=== PATIENT | female | born 1940 | race Caucasian/White ===

== ENCOUNTER 2016-07-01 12:12 | Emergency (ER) | payer MEDICARE ==
[2016-07-01 15:03] LABS: Bilirubin,Urine NEG (Negative); Blood,Urine NEG (Negative); Ketones,Urine NEG (Negative); Leukocyte Esterase,Urine LG (Negative); Nitrite,Urine POS (Negative); Protein,Urine <15 mg/dL mg/dL (Negative); Urobilinogen,Urine < 2.0 mg/dL (<2.0)
[2016-07-01 15:06] LABS: WBC,Urine > 182.0 /HPF (0.0-6.0)
[2016-07-01] MEDS ORDERED: MOTRIN PO ONE (16:31)
--- NOTE | 2016-07-01 16:37 | Emergency Department Report ---
ED Back Pain/Injury HPI - General Chief Complaint: Back Pain/Injury Stated Complaint: LEG PAIN/LOWER BACK PAIN Time Seen by Provider: 07/01/16 16:11 Source: patient, senior network engineer Mode of arrival: Ambulatory Limitations: Language Barrier - History of Present Illness Initial Comments: 76-year-old female presents to the emergency department complaining of lower back pain. Patient reports one week of aching pain that does not radiate. Pain is across the entire lower back. She denies fall or other injury. Pain is constant and is worse with movement. Patient denies associated fever, nausea , vomiting, diarrhea, or abdominal pain. She also denies chest pain or difficulty breathing. There are no other complaints. -: Gradual, week(s) (1) Similar Symptoms Previously: No Place: home Radiation: none Severity: moderate Quality: aching Consistency: constant Improves With: none Worsens With: movement Context: unknown Associated Symptoms: denies other symptoms - Related Data Home Medications Medication Instructions Recorded Confirmed Last Taken Alendronate Sodium/Vitamin D3 70 mg 1XW 07/07/13 10/29/14 07/07/13 [Fosamax Plus D 70 mg-5,600 IU] Cyclobenzaprine [Flexeril 10 MG 10 mg PRN 07/07/13 10/29/14 07/05/13 TAB] Lisinopril/Hydrochlorothiazide 20 mg ONCE 07/07/13 10/29/14 07/10/13 [Zestoretic 20-12.5 mg] Lovastatin [Altoprev] 20 mg ONCE 07/07/13 10/29/14 07/10/13 Previous Rx's Medication Instructions Recorded Last Taken Type Ranitidine HCl [Ranitidine 150mg 150 mg PO BID #60 cap 07/07/13 07/10/13 Rx Cap] Tramadol HCl/Acetaminophen 37.5 - 325 mg PO PRN PRN #30 tablet 04/22/14 Unknown Rx [Ultracet] traMADol [Ultram 50 MG tab] 50 mg PO Q6HR PRN #20 tablet 10/29/14 Unknown Rx Ibuprofen [Motrin] 800 mg PO Q8HR PRN #30 tablet 07/01/16 Unknown Rx Nitrofurantoin [place]/M-Cryst 100 mg PO Q12HR #14 capsule 07/01/16 Unknown Rx [Macrobid CAP] Allergies Allergy/AdvReac Type Severity Reaction Status Date / Time No Known Allergies Allergy Unverified 07/10/13 16:11 ED Review of Systems ROS: Stated complaint: LEG PAIN/LOWER BACK PAIN Other details as noted in HPI Comment: All other systems reviewed and negative Musculoskeletal: back pain ED Past Medical Hx - Past Medical History Previous Medical History?: Yes Hx Hypertension: Yes Hx Arthritis: Yes Additional medical history: HIGH CHOLESTEROL - Surgical History Past Surgical History?: Yes Additional Surgical History: CATARACT SURGERY - Family History Family history: no significant - Social History Smoking Status: Never Smoker Substance Use Type: None - Medications Home Medications: Home Medications Medication Instructions Recorded Confirmed Last Taken Type Alendronate Sodium/Vitamin D3 70 mg 1XW 07/07/13 10/29/14 07/07/13 History [Fosamax Plus D 70 mg-5,600 IU] Cyclobenzaprine [Flexeril 10 MG 10 mg PRN 07/07/13 10/29/14 07/05/13 History TAB] Lisinopril/Hydrochlorothiazide 20 mg ONCE 07/07/13 10/29/14 07/10/13 History [Zestoretic 20-12.5 mg] Lovastatin [Altoprev] 20 mg ONCE 07/07/13 10/29/14 07/10/13 History Ranitidine HCl [Ranitidine 150mg 150 mg PO BID #60 cap 07/07/13 10/29/14 Rx Cap] Tramadol HCl/Acetaminophen 37.5 - 325 mg PO PRN PRN #30 tablet 04/22/14 Unknown Rx [Ultracet] traMADol [Ultram 50 MG tab] 50 mg PO Q6HR PRN #20 tablet 10/29/14 Unknown Rx Ibuprofen [Motrin] 800 mg PO Q8HR PRN #30 tablet 07/01/16 Unknown Rx Nitrofurantoin [place]/M-Cryst 100 mg PO Q12HR #14 capsule 07/01/16 Unknown Rx [Macrobid CAP] ED Physical Exam - General Limitations: Language Barrier General appearance: alert, in no apparent distress - Head Head exam: Present: atraumatic, normocephalic - Eye Eye exam: Present: normal appearance, PERRL, EOMI - ENT ENT exam: Present: normal exam, normal orophraynx, mucous membranes moist - Neck Neck exam: Present: normal inspection, full ROM. Absent: tenderness - Respiratory Respiratory exam: Present: normal lung sounds bilaterally. Absent: respiratory distress - Cardiovascular Cardiovascular Exam: Present: regular rate, normal rhythm, normal heart sounds - GI/Abdominal GI/Abdominal exam: Present: soft, normal bowel sounds. Absent: distended, tenderness - Extremities Exam Extremities exam: Present: normal inspection, full ROM. Absent: tenderness - Back Exam Back exam: Present: normal inspection, full ROM, tenderness, paraspinal tenderness (bilateral lumbar paraspinous muscles). Absent: vertebral tenderness - Neurological Exam Neurological exam: Present: alert, oriented X3. Absent: motor sensory deficit - Skin Skin exam: Present: warm, dry, intact ED Course Vital Signs 07/01/16 07/01/16 13:06 16:30 Temperature 98.4 F Pulse Rate 91 H Respiratory 22 18 Rate Blood Pressure 144/89 O2 Sat by Pulse 95 Oximetry ED Medical Decision Making - EKG Data -: EKG Interpreted by Me EKG shows normal: sinus rhythm, axis, intervals, QRS complexes, ST-T waves Rate: normal - EKG Data When compared to previous EKG there are: previous EKG unavailable Interpretation: normal EKG - Medical Decision Making Lab results reviewed and discussed with the patient. Patient will be treated for urinary tract infection and discharged home. - Differential Diagnosis lumbar strain, UTI Critical care attestation.: If time is entered above; I have spent that time in minutes in the direct care of this critically ill patient, excluding procedure time. ED Disposition Clinical Impression: Acute cystitis without hematuria Disposition: DISCHARGED TO HOME OR SELFCARE Is pt being admited?: No Condition: Stable Instructions: Urinary Tract Infection in Women (ED) Prescriptions: Ibuprofen [Motrin] 800 mg PO Q8HR PRN #30 tablet PRN Reason: Pain Nitrofurantoin [place]/M-Cryst [Macrobid CAP] 100 mg PO Q12HR #14 capsule Referrals: PRIMARY CARE, [Primary Care Provider] - 3-5 Days Time of Disposition: 16:38
[2016-07-01 16:54] VITALS: BP 150/82
== END 2016-07-01 17:12 | disposition home or self-care (01) ==
LOC: ED 12:12
DX: N30.00 Acute cystitis without hematuria (principal); I10 Essential (primary) hypertension; E78.00 Pure hypercholesterolemia, unspecified; Z98.890 Other specified postprocedural states
CPT/HCPCS: 81001; 93005; 93010; 99283

== ENCOUNTER 2017-10-25 11:55 | Observation (INO) | payer MEDICARE ==
[2017-10-25 14:25] LABS: Basophils % (Auto) 0.4 % (0.0-1.8); Eosinophils # (Auto) 0.2 K/mm3 (0.0-0.4); Eosinophils % (Auto) 2.5 % (0.0-4.3); Hemoglobin 11.4 gm/dl (10.1-14.3); Lymphocytes # (Auto) 1.9 K/mm3 (1.2-5.4); Lymphocytes % (Auto) 25.4 % (13.4-35.0); Mean Corpuscular HGB Conc 33 % (30-34); Mean Corpuscular Hemoglobin 29 pg (28-32); Mean Corpuscular Volume 89 fl (79-97); Monocytes # (Auto) 0.6 K/mm3 (0.0-0.8); Monocytes % (Auto) 8.1 % (0.0-7.3); Platelet Count 299 K/mm3 (140-440); Red Blood Count 3.93 M/mm3 (3.65-5.03); Red Cell Distribution Width 13.1 % (13.2-15.2)
[2017-10-25 15:16] LABS: Alanine Aminotransferase 6 units/L (7-56); Albumin 3.4 g/dL (3.9-5); BUN/Creatinine Ratio 20; Blood Urea Nitrogen 8 mg/dL (7-17); Calcium 9.2 mg/dL (8.4-10.2); Hemolysis Index 26
--- NOTE | 2017-10-25 19:32 | Emergency Department Report ---
ED General Adult HPI - General Chief complaint: Extremity Problem,Nontraumatic Stated complaint: SWELLING OF THE LEGS Time Seen by Provider: 10/25/17 18:58 Source: patient Mode of arrival: Ambulatory Limitations: Language Barrier - History of Present Illness Initial comments: Patient presents to the ED with gradual onset of bilateral lower leg swelling. -: Gradual Location: lower extremity Severity scale (0 -10): 0 Consistency: constant Improves with: none Worsens with: none Associated Symptoms: denies other symptoms Treatments Prior to Arrival: none - Related Data Home Medications Medication Instructions Recorded Confirmed Last Taken Alendronate Sodium/Vitamin D3 70 mg 1XW 07/07/13 10/29/14 07/07/13 [Fosamax Plus D 70 mg-5,600 IU] Cyclobenzaprine [Flexeril 10 MG 10 mg PRN 07/07/13 10/29/14 07/05/13 TAB] Lovastatin [Altoprev] 20 mg ONCE 07/07/13 10/29/14 07/10/13 Previous Rx's Medication Instructions Recorded Last Taken Type Ranitidine HCl [Ranitidine 150mg 150 mg PO BID #60 cap 07/07/13 07/10/13 Rx Cap] Tramadol HCl/Acetaminophen 37.5 - 325 mg PO PRN PRN #30 tablet 04/22/14 Unknown Rx [Ultracet] traMADol [Ultram 50 MG tab] 50 mg PO Q6HR PRN #20 tablet 10/29/14 Unknown Rx Ibuprofen [Motrin 800 MG tab] 800 mg PO Q8HR PRN #30 tablet 07/01/16 Unknown Rx Nitrofurantoin [place]/M-Cryst 100 mg PO Q12HR #14 capsule 07/01/16 Unknown Rx [Macrobid CAP] Meclizine [Antivert] 25 mg PO Q8H PRN #30 tablet 07/01/17 Unknown Rx amLODIPine [Norvasc] 5 mg PO DAILY #30 tablet 07/01/17 Unknown Rx Allergies Allergy/AdvReac Type Severity Reaction Status Date / Time No Known Allergies Allergy Verified 06/29/17 15:43 ED Review of Systems ROS: Stated complaint: SWELLING OF THE LEGS Other details as noted in HPI Comment: All other systems reviewed and negative Constitutional: denies: chills, fever Eyes: denies: vision change ENT: denies: ear pain Respiratory: shortness of breath Cardiovascular: edema. denies: chest pain, palpitations Endocrine: no symptoms reported Gastrointestinal: denies: abdominal pain, nausea, vomiting, diarrhea Genitourinary: denies: urgency, frequency Musculoskeletal: denies: back pain, joint swelling Skin: denies: rash, change in color Neurological: denies: headache, weakness, numbness Psychiatric: denies: anxiety, depression Hematological/Lymphatic: denies: easy bleeding, easy bruising ED Past Medical Hx - Past Medical History Hx Hypertension: Yes Hx Arthritis: Yes Additional medical history: HIGH CHOLESTEROL - Surgical History Additional Surgical History: CATARACT SURGERY - Social History Smoking Status: Never Smoker Substance Use Type: None - Medications Home Medications: Home Medications Medication Instructions Recorded Confirmed Last Taken Type Alendronate Sodium/Vitamin D3 70 mg 1XW 07/07/13 10/29/14 07/07/13 History [Fosamax Plus D 70 mg-5,600 IU] Cyclobenzaprine [Flexeril 10 MG 10 mg PRN 07/07/13 10/29/14 07/05/13 History TAB] Lovastatin [Altoprev] 20 mg ONCE 07/07/13 10/29/14 07/10/13 History Ranitidine HCl [Ranitidine 150mg 150 mg PO BID #60 cap 07/07/13 10/29/14 Rx Cap] Tramadol HCl/Acetaminophen 37.5 - 325 mg PO PRN PRN #30 tablet 04/22/14 Unknown Rx [Ultracet] traMADol [Ultram 50 MG tab] 50 mg PO Q6HR PRN #20 tablet 10/29/14 Unknown Rx Ibuprofen [Motrin 800 MG tab] 800 mg PO Q8HR PRN #30 tablet 07/01/16 Unknown Rx Nitrofurantoin [place]/M-Cryst 100 mg PO Q12HR #14 capsule 07/01/16 Unknown Rx [Macrobid CAP] Meclizine [Antivert] 25 mg PO Q8H PRN #30 tablet 07/01/17 Unknown Rx amLODIPine [Norvasc] 5 mg PO DAILY #30 tablet 07/01/17 Unknown Rx ED Physical Exam - General Limitations: Language Barrier General appearance: alert - Head Head exam: Present: atraumatic, normocephalic, normal inspection - Eye Eye exam: Present: normal appearance, PERRL, EOMI Pupils: Present: normal accommodation - ENT ENT exam: Present: normal exam, normal orophraynx, mucous membranes moist - Neck Neck exam: Present: normal inspection, full ROM - Respiratory Respiratory exam: Present: rales. Absent: respiratory distress - Cardiovascular Cardiovascular Exam: Present: regular rate, normal rhythm, normal heart sounds - GI/Abdominal GI/Abdominal exam: Present: soft, normal bowel sounds. Absent: distended, tenderness, guarding, rebound - Extremities Exam Extremities exam: Present: normal inspection, full ROM, normal capillary refill - Back Exam Back exam: Present: normal inspection, full ROM - Neurological Exam Neurological exam: Present: alert, oriented X3, CN II-XII intact - Psychiatric Psychiatric exam: Present: normal affect, normal mood - Skin Skin exam: Present: warm, dry, intact, normal color. Absent: rash ED Course Vital Signs 10/25/17 10/25/17 10/25/17 12:12 18:12 18:15 Temperature 98.3 F Pulse Rate 85 71 72 Respiratory 16 16 Rate Blood Pressure 179/79 168/74 Blood Pressure [Left] O2 Sat by Pulse 97 96 96 Oximetry 10/25/17 10/25/17 10/25/17 18:31 18:36 18:37 Temperature 98.2 F Pulse Rate 72 75 Respiratory 17 16 16 Rate Blood Pressure 168/74 Blood Pressure 168/74 [Left] O2 Sat by Pulse 96 97 97 Oximetry 10/25/17 21:41 Temperature 98.7 F Pulse Rate 76 Respiratory 15 Rate Blood Pressure Blood Pressure 174/70 [Left] O2 Sat by Pulse 97 Oximetry - Reevaluation(s) Reevaluation #1: 10/25/17 22:58 Bilateral lower leg tomorrow. ED Medical Decision Making - Lab Data Result diagrams: 10/25/17 14:07 10/25/17 14:07 - EKG Data -: EKG Interpreted by Co EKG shows normal: sinus rhythm Rate: normal (73) - EKG Data When compared to previous EKG there are: previous EKG unavailable Interpretation: other (No STEMI) - Radiology Data Radiology results: report reviewed, image reviewed - Medical Decision Making Congestive heart failure Critical care attestation.: If time is entered above; I have spent that time in minutes in the direct care of this critically ill patient, excluding procedure time. ED Disposition Clinical Impression: Congestive heart failure (CHF) Qualifiers: Heart failure type: unspecified Heart failure chronicity: acute Qualified Code( s): I50.9 - Heart failure, unspecified Hypertension Qualifiers: Hypertension type: essential hypertension Qualified Code(s): I10 - Essential ( primary) hypertension Disposition: OP ADMIT IP TO THIS HOSP Is pt being admited?: Yes Does the pt Need Aspirin: No Condition: Stable Instructions: Hypertension (ED) Referrals: PRIMARY CARE, [Primary Care Provider] - 3-5 Days
--- NOTE | 2017-10-25 20:16 | XRay Report ---
FINAL REPORT PROCEDURE: XR CHEST 1V AP TECHNIQUE: Chest radiograph anteroposterior view. CPT 31981 HISTORY: Leg swelling, SOB COMPARISON: No prior studies are available for comparison. FINDINGS: Heart: Normal. Mediastinum/Vessels: Normal. Lungs/Pleural space: Diffuse prominence of interstitial markings is noted. Mild degree confluent densities are noted in the left upper lobe. Bilateral pleural spaces are clear.. Bony thorax: There is moderate degree dextroscoliosis of the upper thoracic spine. Life support devices: None. IMPRESSION: Diffuse prominence of interstitial markings most likely represent interstitial edema. In the superimposed infiltrates in the left upper lobe cannot be excluded..
[2017-10-25 20:38] LABS: INR 0.99 (0.87-1.13)
[2017-10-25 20:39] LABS: Partial Thromboplastin Time 33.1 Sec. (24.2-36.6)
[2017-10-25] MEDS ORDERED: LASIX IV ONE (21:58)
--- NOTE | 2017-10-26 03:53 | History and Physical Report ---
History of Present Illness Date of examination: 10/26/17 Date of admission: 10/25/17 23:39 Chief complaint: Bilateral lower extremity swelling History of present illness: Patient is a 77 year old woman with history of hypertension, hyperlipidemia, recently treated for dizziness comes to the emergency room because of bilateral lower ext swelling, she reports this has been going on for a few weeks and denies any associated shortness of breath, orthopnea, PND, chest pain, nausea or vomiting. 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 She was recently in the hospital for hypertension and dizziness at which time she was diagnosed with benign positional vertigo during that stay the patient was started on Norvasc and also meclizine. ROS Constitutional: No fever, fatigue or weight loss. Skin: No rash. Eyes: No recent vision problems or eye pain. ENT: No congestion, ear pain, or sore throat. Endocrine: No thyroid problems. Cardiovascular: No chest pain. Bilateral lower ext swelling Respiratory: No cough, shortness of breath, congestion, or wheezing. Gastrointestinal: No abdominal pain, nausea, vomiting, or diarrhea. Genitourinary: No dysuria. Musculoskeletal: No joint swelling. Neurologic: No seizures. Hematologic: No unusual bruising or bleeding. Psychiatric: No psychiatric problems, hallucinations or depression. All other systems reviewed and otherwise negative. Past History Past Medical History: hypertension, hyperlipidemia Past Surgical History: No surgical history Social history: lives with family, full code Family history: hypertension Medications and Allergies Allergies Allergy/AdvReac Type Severity Reaction Status Date / Time No Known Allergies Allergy Verified 06/29/17 15:43 Home Medications Medication Instructions Recorded Confirmed Last Taken Type Alendronate Sodium/Vitamin D3 70 mg 1XW 07/07/13 10/29/14 07/07/13 History [Fosamax Plus D 70 mg-5,600 IU] Cyclobenzaprine [Flexeril 10 MG 10 mg PRN 07/07/13 10/29/14 07/05/13 History TAB] Lovastatin [Altoprev] 20 mg ONCE 07/07/13 10/29/14 07/10/13 History Ranitidine HCl [Ranitidine 150mg 150 mg PO BID #60 cap 07/07/13 10/29/14 Rx Cap] Tramadol HCl/Acetaminophen 37.5 - 325 mg PO PRN PRN #30 tablet 04/22/14 Unknown Rx [Ultracet] traMADol [Ultram 50 MG tab] 50 mg PO Q6HR PRN #20 tablet 10/29/14 Unknown Rx Ibuprofen [Motrin 800 MG tab] 800 mg PO Q8HR PRN #30 tablet 07/01/16 Unknown Rx Nitrofurantoin [place]/M-Cryst 100 mg PO Q12HR #14 capsule 07/01/16 Unknown Rx [Macrobid CAP] Meclizine [Antivert] 25 mg PO Q8H PRN #30 tablet 07/01/17 Unknown Rx amLODIPine [Norvasc] 5 mg PO DAILY #30 tablet 07/01/17 Unknown Rx Exam - Physical Exam Narrative exam: VITAL SIGNS: Reviewed. GENERAL: The patient appeared well nourished and normally developed. Vital signs as documented. HEAD: No signs of head trauma. EYES: Pupils are equal. Extraocular motions intact. EARS: Hearing grossly intact. MOUTH: Oropharynx is normal. NECK: No adenopathy, no JVD. CHEST: Chest with clear breath sounds bilaterally. No wheezes, rales, or rhonchi. CARDIAC: Regular rate and rhythm. S1 and S2, without murmurs, gallops, or rubs. VASCULAR: Trace Edema. Peripheral pulses normal and equal in all extremities. ABDOMEN: Soft, without detectable tenderness. No sign of distention. No rebound or guarding, and no masses palpated. Bowel Sounds normal. MUSCULOSKELETAL: Good range of motion of all major joints. Extremities without clubbing, cyanosis. chronic lymphedema. Trace pitting edema. NEUROLOGIC EXAM: Alert and oriented x 3. No focal sensory or strength deficits. Speech normal. Follows commands. PSYCHIATRIC: Mood normal. SKIN: No rash or lesions. - Constitutional Vitals: Temp Pulse Resp BP Pulse Ox 98.7 F 69 14 159/69 95 10/25/17 21:41 10/26/17 02:00 10/26/17 02:00 10/26/17 02:00 10/26/17 02:00 Results - Labs CBC & Chem 7: 10/25/17 14:07 10/25/17 14:07 Labs: Laboratory Last Values WBC 7.6 K/mm3 (4.5-11.0) 10/25/17 14:07 RBC 3.93 M/mm3 (3.65-5.03) 10/25/17 14:07 Hgb 11.4 gm/dl (10.1-14.3) 10/25/17 14:07 Hct 35.0 % (30.3-42.9) 10/25/17 14:07 MCV 89 fl (79-97) 10/25/17 14:07 MCH 29 pg (28-32) 10/25/17 14:07 MCHC 33 % (30-34) 10/25/17 14:07 RDW 13.1 % (13.2-15.2) L 10/25/17 14:07 Plt Count 299 K/mm3 (140-440) 10/25/17 14:07 Lymph % (Auto) 25.4 % (13.4-35.0) 10/25/17 14:07 [place] % (Auto) 8.1 % (0.0-7.3) H 10/25/17 14:07 Eos % (Auto) 2.5 % (0.0-4.3) 10/25/17 14:07 Baso % (Auto) 0.4 % (0.0-1.8) 10/25/17 14:07 Lymph # 1.9 K/mm3 (1.2-5.4) 10/25/17 14:07 [place] # 0.6 K/mm3 (0.0-0.8) 10/25/17 14:07 Eos # 0.2 K/mm3 (0.0-0.4) 10/25/17 14:07 Baso # 0.0 K/mm3 (0.0-0.1) 10/25/17 14:07 Seg Neutrophils % 63.6 % (40.0-70.0) 10/25/17 14:07 Seg Neutrophils # 4.8 K/mm3 (1.8-7.7) 10/25/17 14:07 PT 13.6 Sec. (12.2-14.9) 10/25/17 20:07 INR 0.99 (0.87-1.13) 10/25/17 20:07 APTT 33.1 Sec. (24.2-36.6) 10/25/17 20:07 Sodium 139 mmol/L (137-145) 10/25/17 14:07 Potassium 4.0 mmol/L (3.6-5.0) 10/25/17 14:07 Chloride 100.2 mmol/L (98-107) 10/25/17 14:07 Carbon Dioxide 26 mmol/L (22-30) 10/25/17 14:07 Anion Gap 17 mmol/L 10/25/17 14:07 BUN 8 mg/dL (7-17) 10/25/17 14:07 Creatinine 0.4 mg/dL (0.7-1.2) L 10/25/17 14:07 Estimated GFR > 60 ml/min 10/25/17 14:07 BUN/Creatinine Ratio 20 % 10/25/17 14:07 Glucose 108 mg/dL (65-100) H 10/25/17 14:07 Calcium 9.2 mg/dL (8.4-10.2) 10/25/17 14:07 Total Bilirubin 0.30 mg/dL (0.1-1.2) 10/25/17 14:07 AST 13 units/L (5-40) 10/25/17 14:07 ALT 6 units/L (7-56) L 10/25/17 14:07 Alkaline Phosphatase 62 units/L (35-129) 10/25/17 14:07 NT-Pro-B Natriuret Pep 203.8 pg/mL (0-900) 10/25/17 20:07 Total Protein 8.1 g/dL (6.3-8.2) 10/25/17 14:07 Albumin 3.4 g/dL (3.9-5) L 10/25/17 14:07 Albumin/Globulin Ratio 0.7 % 10/25/17 14:07 - Imaging and Cardiology Chest x-ray: image reviewed (interestitial edema) Assessment and Plan Assessment and plan: Patient is a 77 year old woman with history of hypertension, hyperlipidemia, recently treated for dizziness comes to the emergency room because of bilateral lower ext swelling, she reports this has been going on for a few weeks and denies any associated shortness of breath, orthopnea, PND, chest pain, nausea or vomiting. 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 During her recent admission to the hospital she was started on Norvasc. Bilateral lower ext edema Interstitial Edema possible pneumonitis HTN Hyperlipidemia Morbid obesity Plan * Admit to [facility] * Bilateral lower ext edema could be secondary to norvasc * Start levaquin, statin,hctz, and prn enalapril and monitor renal function * Check Echocardiogram * Repeat cxr in am * Doubt CHF * Lower ext Doppler negative. * DVT/GI prophy * Plan of care and code status discussed with patient and family. * Discharge in am if clinically improved Advance Directives: Yes Plan of care discussed with patient/family: Yes
[2017-10-26] MEDS ORDERED: ZOFRAN IV PRN (03:55)
[2017-10-26] MEDS ORDERED: TYLENOL PO PRN (03:55)
[2017-10-26] MEDS ORDERED: SODIUM CHLORIDE FLUSH SYRINGE 10 ML IV PRN (03:55)
[2017-10-26] MEDS ORDERED: PROVENTIL IH PRN (03:55)
[2017-10-26] MEDS ORDERED: VASOTEC IV PRN (03:59)
[2017-10-26] MEDS ORDERED: VASOTEC IV SCH (06:00)
[2017-10-26 07:01] LABS: Chol/HDL Ratio 4.23 %
[2017-10-26] MEDS: DUONEB *Not for PRN Use IH SCH ×3 (08:50→20:20)
[2017-10-26] MEDS: LOPRESSOR PO SCH ×2 (10:47→23:28)
[2017-10-26] MEDS: PEPCID PO SCH ×2 (10:47→23:27)
[2017-10-26] MEDS: HCTZ PO SCH (10:47)
[2017-10-26] MEDS: SODIUM CHLORIDE FLUSH SYRINGE 10 ML IV SCH ×2 (10:48→23:28)
[2017-10-27] MEDS: DUONEB *Not for PRN Use IH SCH ×4 (03:18→20:54)
[2017-10-27 06:22] LABS: Hematocrit 30.1 % (30.3-42.9); Hemoglobin 9.8 gm/dl (10.1-14.3); Mean Corpuscular HGB Conc 33 % (30-34); Mean Corpuscular Hemoglobin 28 pg (28-32); Mean Corpuscular Volume 87 fl (79-97); Platelet Count 123 K/mm3 (140-440); Red Blood Count 3.46 M/mm3 (3.65-5.03)
[2017-10-27 06:37] LABS: Hemolysis Index 0
[2017-10-27 06:44] LABS: BUN/Creatinine Ratio TNR; Blood Urea Nitrogen TNR mg/dL (7-17); Calcium TNR mg/dL (8.4-10.2)
--- NOTE | 2017-10-27 08:29 | XRay Report ---
Single view chest: Compared to 10/25/17. History: CHF. Findings: Cardiomegaly. Trachea is midline. No definite consolidation, pneumothorax or pleural effusion. No significant interval change. Impression: No significant interval change.
[2017-10-27 09:33] LABS: Band Neutrophils # (Manual) 0.1 K/mm3; Basophils % (Manual) 0 % (0.0-1.8); Total Cells Counted 100
[2017-10-27 09:34] LABS: Anisocytosis 2+; Hypochromasia 1+; Large Platelets Rare; Ovalocytes 1+; Platelet Estimate Appears Decreased; Stomatocytes Few; Target Cells 2+; Tear Drop Cells Few
[2017-10-27] MEDS: LOPRESSOR PO SCH ×2 (10:24→21:48)
[2017-10-27] MEDS: HCTZ PO SCH (10:25)
[2017-10-27] MEDS: PEPCID PO SCH ×2 (10:25→21:49)
[2017-10-27] MEDS: SODIUM CHLORIDE FLUSH SYRINGE 10 ML IV SCH ×2 (10:26→21:49)
[2017-10-27] MEDS ORDERED: Fluarix Quad 2017-2018(36 MOS+ IM ONE (12:00)
--- NOTE | 2017-10-27 15:48 | Progress Note ---
Assessment and Plan Assessment and plan: Patient is a 77 year old woman with history of hypertension, hyperlipidemia, recently treated for dizziness comes to the emergency room because of bilateral lower ext swelling, she reports this has been going on for a few weeks and denies any associated shortness of breath, orthopnea, PND, chest pain, nausea or vomiting. She is welsh speaking and hx was obtained via book cutter with her and family. During her recent admission to the hospital she was started on Norvasc. Bilateral lower ext edema Interstitial Edema possible pneumonitis HTN Hyperlipidemia Morbid obesity Thrombocytopenia Plan * Bilateral lower extremity edema felt to be secondary to Norvasc may be improving. * Await physical therapy evaluation and treat * Likely will need intermediate facility placement prior to going home * Continue and complete levaquin, statin,hctz, and prn enalapril and monitor renal function * Echocardiogram reviewed 55-60% ejection fraction * Lower ext Doppler negative. * DVT/GI prophy * Plan of care and code status discussed with patient and family. * Discharge in am to intermediate facility. History Interval history: Patient seen and examined this morning clinically improving. Nevertheless discussed with family report that the patient intermittently gets confused with declining mobility and unable to care for herself at home. Hospitalist Physical - Physical exam Narrative exam: VITAL SIGNS: Reviewed. GENERAL: The patient appeared well nourished and normally developed. Vital signs as documented. HEAD: No signs of head trauma. EYES: Pupils are equal. Extraocular motions intact. EARS: Hearing grossly intact. MOUTH: Oropharynx is normal. NECK: No adenopathy, no JVD. CHEST: Chest with clear breath sounds bilaterally. No wheezes, rales, or rhonchi. CARDIAC: Regular rate and rhythm. S1 and S2, without murmurs, gallops, or rubs. VASCULAR: Trace Edema. Peripheral pulses normal and equal in all extremities. ABDOMEN: Soft, without detectable tenderness. No sign of distention. No rebound or guarding, and no masses palpated. Bowel Sounds normal. MUSCULOSKELETAL: Good range of motion of all major joints. Extremities without clubbing, cyanosis. chronic lymphedema. Trace pitting edema. NEUROLOGIC EXAM: Alert and oriented x 3. No focal sensory or strength deficits. Speech normal. Follows commands. PSYCHIATRIC: Mood normal. SKIN: No rash or lesions. - Constitutional Vitals: Temp Pulse Resp BP Pulse Ox 97.8 F 77 18 128/86 96 10/27/17 14:28 10/27/17 14:28 10/27/17 14:28 10/27/17 14:28 10/27/17 14:28 Results - Labs CBC & Chem 7: 10/27/17 06:10 10/27/17 06:10 Labs: Laboratory Last Values WBC 9.9 K/mm3 (4.5-11.0) 10/27/17 06:10 RBC 3.46 M/mm3 (3.65-5.03) L 10/27/17 06:10 Hgb 9.8 gm/dl (10.1-14.3) L 10/27/17 06:10 Hct 30.1 % (30.3-42.9) L 10/27/17 06:10 MCV 87 fl (79-97) 10/27/17 06:10 MCH 28 pg (28-32) 10/27/17 06:10 MCHC 33 % (30-34) 10/27/17 06:10 RDW 22.0 % (13.2-15.2) H 10/27/17 06:10 Plt Count 123 K/mm3 (140-440) L 10/27/17 06:10 Lymph % (Auto) 25.4 % (13.4-35.0) 10/25/17 14:07 [place] % (Auto) 8.1 % (0.0-7.3) H 10/25/17 14:07 Eos % (Auto) 2.5 % (0.0-4.3) 10/25/17 14:07 Baso % (Auto) 0.4 % (0.0-1.8) 10/25/17 14:07 Lymph # 1.9 K/mm3 (1.2-5.4) 10/25/17 14:07 [place] # 0.6 K/mm3 (0.0-0.8) 10/25/17 14:07 Eos # 0.2 K/mm3 (0.0-0.4) 10/25/17 14:07 Baso # 0.0 K/mm3 (0.0-0.1) 10/25/17 14:07 Add Manual Diff Complete 10/27/17 06:10 Total Counted 100 10/27/17 06:10 Seg Neutrophils % 63.6 % (40.0-70.0) 10/25/17 14:07 Seg Neuts % (Manual) 74.0 % (40.0-70.0) H 10/27/17 06:10 Band Neutrophils % 1.0 % 10/27/17 06:10 Lymphocytes % (Manual) 20.0 % (13.4-35.0) 10/27/17 06:10 Reactive Lymphs % (Man) 0 % 10/27/17 06:10 Monocytes % (Manual) 2.0 % (0.0-7.3) 10/27/17 06:10 Eosinophils % (Manual) 1.0 % (0.0-4.3) 10/27/17 06:10 Basophils % (Manual) 0 % (0.0-1.8) 10/27/17 06:10 Metamyelocytes % 2.0 % 10/27/17 06:10 Myelocytes % 0 % 10/27/17 06:10 Promyelocytes % 0 % 10/27/17 06:10 Blast Cells % 0 % 10/27/17 06:10 Nucleated RBC % 1.0 % (0.0-0.9) H 10/27/17 06:10 Seg Neutrophils # 4.8 K/mm3 (1.8-7.7) 10/25/17 14:07 Seg Neutrophils # Man 7.3 K/mm3 (1.8-7.7) 10/27/17 06:10 Band Neutrophils # 0.1 K/mm3 10/27/17 06:10 Lymphocytes # (Manual) 2.0 K/mm3 (1.2-5.4) 10/27/17 06:10 Abs React Lymphs (Man) 0.0 K/mm3 10/27/17 06:10 Monocytes # (Manual) 0.2 K/mm3 (0.0-0.8) 10/27/17 06:10 Eosinophils # (Manual) 0.1 K/mm3 (0.0-0.4) 10/27/17 06:10 Basophils # (Manual) 0.0 K/mm3 (0.0-0.1) 10/27/17 06:10 Metamyelocytes # 0.2 K/mm3 10/27/17 06:10 Myelocytes # 0.0 K/mm3 10/27/17 06:10 Promyelocytes # 0.0 K/mm3 10/27/17 06:10 Blast Cells # 0.0 K/mm3 10/27/17 06:10 WBC Morphology Not Reportable 10/27/17 06:10 Hypersegmented Neuts Not Reportable 10/27/17 06:10 Hyposegmented Neuts Not Reportable 10/27/17 06:10 Hypogranular Neuts Not Reportable 10/27/17 06:10 Smudge Cells Not Reportable 10/27/17 06:10 Toxic Granulation Not Reportable 10/27/17 06:10 Toxic Vacuolation Not Reportable 10/27/17 06:10 Dohle Bodies Not Reportable 10/27/17 06:10 Pelger-Huet Anomaly Not Reportable 10/27/17 06:10 Melly Rods Not Reportable 10/27/17 06:10 Platelet Estimate Appears decreased 10/27/17 06:10 Clumped Platelets Not Reportable 10/27/17 06:10 Plt Clumps, EDTA Not Reportable 10/27/17 06:10 Large Platelets Rare 10/27/17 06:10 Giant Platelets Not Reportable 10/27/17 06:10 Platelet Satelliting Not Reportable 10/27/17 06:10 Plt Morphology Comment Not Reportable 10/27/17 06:10 RBC Morphology Not Reportable 10/27/17 06:10 Dimorphic RBCs Not Reportable 10/27/17 06:10 Polychromasia 1+ 10/27/17 06:10 Hypochromasia 1+ 10/27/17 06:10 Poikilocytosis Not Reportable 10/27/17 06:10 Anisocytosis 2+ 10/27/17 06:10 Microcytosis Not Reportable 10/27/17 06:10 Macrocytosis Not Reportable 10/27/17 06:10 Spherocytes Not Reportable 10/27/17 06:10 Pappenheimer Bodies Not Reportable 10/27/17 06:10 Sickle Cells Not Reportable 10/27/17 06:10 Target Cells 2+ 10/27/17 06:10 Tear Drop Cells Few 10/27/17 06:10 Ovalocytes 1+ 10/27/17 06:10 Stomatocytes Few 10/27/17 06:10 Helmet Cells Not Reportable 10/27/17 06:10 Roy-Rulo Bodies Not Reportable 10/27/17 06:10 [place] Rings Not Reportable 10/27/17 06:10 Ashia Cells Not Reportable 10/27/17 06:10 Bite Cells Not Reportable 10/27/17 06:10 Crenated Cell Not Reportable 10/27/17 06:10 Elliptocytes Not Reportable 10/27/17 06:10 Acanthocytes (Spur) Not Reportable 10/27/17 06:10 Rouleaux Not Reportable 10/27/17 06:10 Hemoglobin C Crystals Not Reportable 10/27/17 06:10 Schistocytes Not Reportable 10/27/17 06:10 Malaria parasites Not Reportable 10/27/17 06:10 Ryland Bodies Not Reportable 10/27/17 06:10 Hem Pathologist Commnt No 10/27/17 06:10 PT 13.6 Sec. (12.2-14.9) 10/25/17 20:07 INR 0.99 (0.87-1.13) 10/25/17 20:07 APTT 33.1 Sec. (24.2-36.6) 10/25/17 20:07 Sodium TNR 10/27/17 06:10 Potassium TNR 10/27/17 06:10 Chloride TNR 10/27/17 06:10 Carbon Dioxide TNR 10/27/17 06:10 Anion Gap TNR 10/27/17 06:10 BUN TNR 10/27/17 06:10 Creatinine TNR 10/27/17 06:10 Estimated GFR TNR 10/27/17 06:10 BUN/Creatinine Ratio TNR 10/27/17 06:10 Glucose TNR 10/27/17 06:10 POC Glucose 149 (70-105) H 10/27/17 06:51 Hemoglobin A1c 6.4 % (4-6) H 10/26/17 05:43 Calcium TNR 10/27/17 06:10 Total Bilirubin 0.30 mg/dL (0.1-1.2) 10/25/17 14:07 AST 13 units/L (5-40) 10/25/17 14:07 ALT 6 units/L (7-56) L 10/25/17 14:07 Alkaline Phosphatase 62 units/L (35-129) 10/25/17 14:07 NT-Pro-B Natriuret Pep 203.8 pg/mL (0-900) 10/25/17 20:07 Total Protein 8.1 g/dL (6.3-8.2) 10/25/17 14:07 Albumin 3.4 g/dL (3.9-5) L 10/25/17 14:07 Albumin/Globulin Ratio 0.7 % 10/25/17 14:07 Triglycerides 72 mg/dL (2-149) 10/26/17 05:43 Cholesterol 199 mg/dL (50-199) 10/26/17 05:43 LDL Cholesterol Direct 148 mg/dL (50-130) H 10/26/17 05:43 HDL Cholesterol 47 mg/dL (40-59) 10/26/17 05:43 Cholesterol/HDL Ratio 4.23 % 10/26/17 05:43
[2017-10-28] MEDS: DUONEB *Not for PRN Use IH SCH ×3 (02:55→14:24)
[2017-10-28] MEDS: LOPRESSOR PO SCH (09:46)
[2017-10-28] MEDS: HCTZ PO SCH (09:46)
[2017-10-28] MEDS: PEPCID PO SCH (09:46)
[2017-10-28] MEDS: SODIUM CHLORIDE FLUSH SYRINGE 10 ML IV SCH (09:48)
--- NOTE | 2017-10-28 10:13 | Discharge Summary ---
Providers - Providers Date of Admission: 10/25/17 23:39 Date of discharge: 10/28/17 Attending physician: NAMAN REICH 10/26/17 11:37 Physical Therapy Evaluation and Treat [CONS] Routine Comment: SNF PLACEMENT Reason For Exam: Debility 10/26/17 11:39 Occupational Therapy Evaluate and Treat [CONS] Routine Comment: SNF PLACEMENT Reason For Exam: Debility Primary care physician: HEEL TURNER Hospitalization Condition: Stable Pertinent studies: Venous Doppler negative for deep vein thrombosis. Echocardiogram ejection fraction 55-60%. Disposition: DC/[place]-[facility] CERT - Discharge Diagnoses (1) Edema Status: Acute Comment: Patient presented with lower extremity edema. To be secondary to congestive heart failure. Patient did have some evidence of debility. Patient was worked up negative for DVT echocardiogram showed normal ejection fraction. Patient edema resolved with discontinuation of amlodipine and x diuretics (2) Hypertension Status: Acute Qualifiers: Hypertension type: essential hypertension Qualified Code(s): I10 - Essential (primary) hypertension Comment: Patient blood pressure fairly well controlled with discontinuation of amlodipine and initiation of metoprolol Core Measure Documentation - Palliative Care Palliative Care/ Comfort Measures: Not Applicable - Core Measures Any of the following diagnoses?: none Exam - Constitutional Vitals: Temp Pulse Resp BP Pulse Ox 98.8 F 82 19 145/63 90 10/28/17 08:22 10/28/17 09:46 10/28/17 08:22 10/28/17 09:46 10/28/17 08:22 General appearance: Present: no acute distress, well-nourished - EENT Eyes: Present: PERRL ENT: hearing intact, clear oral mucosa - Neck Neck: Present: supple, normal ROM - Respiratory Respiratory effort: normal Respiratory: bilateral: CTA - Cardiovascular Heart Sounds: Present: S1 & S2. Absent: rub, click - Extremities Extremities: pulses symmetrical, No edema Peripheral Pulses: within normal limits - Abdominal General gastrointestinal: Present: soft, non-tender, non-distended, normal bowel sounds Female genitourinary: Present: normal - Integumentary Integumentary: Present: clear, warm, dry - Musculoskeletal Musculoskeletal: gait normal, strength equal bilaterally - Psychiatric Psychiatric: appropriate mood/affect, intact judgment & insight - Neurologic Neurologic: CNII-XII intact, moves all extremities Plan Activity: no restrictions, up only with assistance Weight Bearing Status: Weight Bear as Tolerated Diet: low salt Follow up with: PRIMARY CARE, [Primary Care Provider] - 3-5 Days Prescriptions: Metoprolol [Lopressor TAB] 25 mg PO BID #60 tablet
[2017-10-28 15:48] VITALS: BP 118/73
--- NOTE | 2017-11-02 14:39 | Query- General ---
Nikko Ocasio Date:__11/02/2017 C.O.D. Biller/CDS:__María/Phoebe Phone#:__[phone] Exercise your independent professional judgment when responding to this query. Questions asked do not imply a particular answer is desired or expected. We greatly appreciate your clarification on this issue. Clinical Documentation States: 77 Year old female was admitted on 10/25/2017 for bilateral lower ext swelling. The Hospitalist (Dr. Rocha) progress note stated "Interstitial Edema possible pneumonitis." Given the above clinical scenario can you please provide an appropriate diagnosis based on your knowledge of the patient: PHYSICIAN RESPONSE: [ ] pneumonitis Ruled In [X ] pneumonitis Ruled Out [ ] Other (Please specify): Present on Admission: [ X] Yes (Y) [ ] Clinically undeterminable (W) [ ]No(N) Please also document response in your Progress Notes and/or Discharge Summary and indicate if the condition was present on admission. STEPHEND
== END 2017-10-28 18:10 ==
LOC: ED 11:55 → INTOOBSV 23:39 → 4A 23:39 → 3A 10-26 05:29 → 2B-ACE 10-26 06:10
PROVIDERS: ADMIT Internal Medicine; ATTEND Internal Medicine
DX: R60.0 Localized edema (principal); I10 Essential (primary) hypertension; E78.5 Hyperlipidemia, unspecified; E78.00 Pure hypercholesterolemia, unspecified; E66.01 Morbid (severe) obesity due to excess calories; D69.6 Thrombocytopenia, unspecified; Z98.49 Cataract extraction status, unspecified eye; Z68.41 Body mass index [BMI] 40.0-44.9, adult; Z82.49 Family history of ischemic heart disease and other diseases of the circulatory system; Z23 Encounter for immunization
CPT/HCPCS: 36415; 71045; 80048; 80053; 80061; 82962; 83036; 83880; 85007; 85025; 85610; 85730; 90686; 93005; 93010; 93306; 93970; 94640; 96374; 97110; 97116; 97161; 97165; 99285; G0008; G0378; G8987; G8988; J1940; 90471